=== PATIENT | male | born 1985 | race Caucasian/White ===

== ENCOUNTER 2024-02-17 18:41 | Emergency (ER) | payer BC ==
[2024-02-17 18:54] VITALS: RESP 18
[2024-02-17] MEDS: LIDOCAINE VISCOUS 2% 15 ML CUP PO ONE (21:22)
[2024-02-17] MEDS: GLUCAGON 1 MG/ML VIAL IVP STA (21:23)
--- NOTE | 2024-02-17 21:59 | ED ---
Recheck HPI - General Chief Complaint: Recheck/Abnormal Lab/Rx Stated Complaint: Foreign obj in throat Time Seen by Provider: 02/17/24 21:58 Source: patient Mode of arrival: ambulatory Limitations: no limitations - History of Present Illness Initial Comments: 39-year-old male presented to ER with a chief complaint of esophageal foreign body. Patient reports around 8 AM he was drinking a smoothie with carrots and and believes he has a carrot lodged in his esophagus. He states he has been drinking water which has occasionally come up. He tried to eat lunch but was unsuccessful on passing the food. He denies any difficulty breathing or swallowing. He does state he has a history of having food stuck in his esophagus and had to have a EGD performed in the past. Patient did not follow- up post removal for further evaluation. He denies any chest pain, shortness of breath, abdominal pain, nausea, vomiting, constipation/diarrhea or urinary comp laints. - Related Data Allergies Allergy/AdvReac Type Severity Reaction Status Date / Time Sulfa (Sulfonamide Allergy Unknown Verified 02/17/24 18:54 Antibiotics) Childhood Review of Systems ROS Statement: Those systems with pertinent positive or pertinent negative responses have been documented in the HPI. ROS Other: All systems not noted in ROS Statement are negative. Past Medical History Past Medical History: No Reported History History of Any Multi-Drug Resistant Organisms: None Reported Past Surgical History: Orthopedic Surgery Past Psychological History: No Psychological Hx Reported Smoking Status: Former smoker Past Alcohol Use History: Rare Past Drug Use History: None Reported General Exam Limitations: no limitations General appearance: alert, in no apparent distress ENT exam: Present: normal exam, normal oropharynx, mucous membranes moist Neck exam: Present: normal inspection. Absent: tenderness, meningismus, lymphadenopathy Respiratory exam: Present: normal lung sounds bilaterally. Absent: respiratory distress, wheezes, rales, rhonchi, stridor Cardiovascular Exam: Present: regular rate, normal rhythm, normal heart sounds. Absent: systolic murmur, diastolic murmur, rubs, gallop, clicks GI/Abdominal exam: Present: soft, normal bowel sounds. Absent: distended, tenderness, guarding, rebound, rigid Skin exam: Present: warm, dry, intact, normal color. Absent: rash Course Vital Signs 02/17/24 02/17/24 18:50 22:13 Temperature 98.3 F 97.9 F Pulse Rate 61 54 L Respiratory 18 18 Rate Blood Pressure 135/77 126/79 O2 Sat by Pulse 99 100 Oximetry Medical Decision Making - Medical Decision Making Was pt. sent in by a medical professional or institution (LISETH King, PROCESS [employer]ER, urgent care, hospital, or fci...) When possible be specific @ -No Did you speak to anyone other than the patient for history (EMS, parent, family, police, friend...)? What history was obtained from this source @ -No Did you review nursing and triage notes (agree or disagree)? Why? @ -I reviewed and agree with nursing and triage notes Were old charts reviewed (outside hosp., previous admission, EMS record, old EKG, old radiological studies, urgent care reports/EKG's, fci records)? Report findings @ -No old charts were reviewed Differential Diagnosis (chest pain, altered mental status, abdominal pain women, abdominal pain men, vaginal bleeding, weakness, fever, dyspnea, syncope, headache, dizziness, GI bleed, back pain, seizure, CVA, palpatations, mental health, musculoskeletal)? @ -Esophageal foreign body, acid reflux, esophageal stricture...this list, to be all-inclusive EKG interpreted by me (3pts min.). @ -[None X-rays interpreted by me (1pt min.). @ -None done CT interpreted by me (1pt min.). @ -None done U/S interpreted by me (1pt. min.). @ -None done What testing was considered but not performed or refused? (CT, X-rays, U/S, labs)? Why? @ -None What meds were considered but not given or refused? Why? @ -None Did you discuss the management of the patient with other professionals (professionals i.e. LISETH King, PROCESS CONTROLLER, lab, RT, psych nurse, public health social worker, hotel reservationist, teacher, housing management officer, casework supervisor)? Give summary @ -No Was smoking cessation discussed for >3mins.? @ -No Was critical care preformed (if so, how long)? @ -No Were there social determinants of health that impacted care today? How? (Homelessness, low income, unemployed, alcoholism, drug addiction, transportation, low edu. Level, literacy, decrease access to med. care, detention, rehab)? @ -No Was there de-escalation of care discussed even if they declined (Discuss DNR or withdrawal of care, Hospice)? DNR status @ -No What co-morbidities impacted this encounter? (DM, HTN, Smoking, COPD, CAD, Cancer, CVA, ARF, Chemo, Hep., AIDS, mental health diagnosis, sleep apnea, morbid obesity)? @ -None Was patient admitted / discharged? Hospital course, mention meds given and route, prescriptions, significant lab abnormalities, going to OR and other pertinent info. @ -[Discharge. 39-year-old male presented to the ER with a chief complaint of foreign body in esophagus. History and physical exam completed. Vital stable. Patient in no signs of acute distress and nontoxic-appearing. Exam unremarkable. Patient received IV Valium and glucagon in hopes of passing foreign body. Patient able to consume liquids without difficulty. Upon reevaluation, patient still complaining of esophageal foreign body sensation. I advised the need of transfer for EGD and further evaluation. Patient refused stating he would like to go home and follow-up tomorrow with PCP as this happens often. Patient stable for discharge at this time as he is not tolerating liquids and in no signs of acute distress. Strict return parameters discussed. Patient discharged in stable condition. Patient and , at bedside, verbally expressed understanding and agreement with care plan. Case discussed with ED attending, Dr. Valenzuela. Undiagnosed new problem with uncertain prognosis? @ -No Drug Therapy requiring intensive monitoring for toxicity (Heparin, Nitro, Insulin, Cardizem)? @ -No Were any procedures done? @ -No Diagnosis/symptom? @ -Esophageal foreign body sensation Acute, or Chronic, or Acute on Chronic? @ -Acute Uncomplicated (without systemic symptoms) or Complicated (systemic symptoms)? @ -Uncomplicated Side effects of treatment? @ -No Exacerbation, Progression, or Severe Exacerbation? @ -No Poses a threat to life or bodily function? How? (Chest pain, [place], NH, pneumonia, PE, COPD, DKA, ARF, appy, cholecystitis, CVA, Diverticulitis, Homicidal, Suicidal, threat to staff... and all critical care pts) @ -No Disposition Clinical Impression: Foreign body sensation in throat Disposition: HOME SELF-CARE Condition: Stable Instructions (If sedation given, give patient instructions): Esophageal Foreign Body (ED) Additional Instructions: Please follow-up with GI for further evaluation. Return to the ER for any new or worsening concerns. Is patient prescribed a controlled substance at d/c from ED?: No Referrals: Juan Forrester MD [Primary Care Provider] - 1-2 days Gayle Zhao MD [STAFF PHYSICIAN] - 1-2 days Time of Disposition: 21:59
[2024-02-17 22:18] VITALS: BP 126/79; PULSE 54; TEMP 97.9
== END 2024-02-17 22:17 | disposition home or self-care (01) ==
LOC: EC 18:41
DX: R09.A2 Foreign body sensation, throat (principal); Z88.2 Allergy status to sulfonamides; Z87.891 Personal history of nicotine dependence
CPT/HCPCS: 99283; 96374; 96375; J1610; J3360